=== PATIENT | male | born 1935 | race Hispanic/Latino ===

== ENCOUNTER 2017-02-25 10:27 | Emergency (ER) | payer MEDICARE, BC ==
[2017-02-25 10:38] VITALS: BMI 34.3
[2017-02-25 10:39] VITALS: RESP 16; TEMP 98.2
--- NOTE | 2017-02-25 11:32 | ED PDOC ---
Arrival/HPI <DUDLEY HAQUE - Last Filed: 02/25/17 16:08> <Morris Barnett - Last Filed: 02/25/17 17:57> - General Chief Complaint: Back Pain Time Seen by Provider: 02/25/17 10:43 - History of Present Illness Narrative History of Present Illness (Text): 02/25/17 11:15 Mr. Russell is a 81 year old male with pmh signifianct for COPD who presents to the emergency department with lower back pain with radiation of pain into his left leg. Pt reports the onset of his pain was a few weeks ago after he sustained a fall in the shower. He reports falling on to his left side. He reports the pain has become progressively worse since onset and is rated as constant 7/10 pain. His pain is worse with walking and increased with long periods of sitting. He denies urinary incontinence, urinary retention, saddle anesthesia, weakness, numbness or fever. Pt reports taking 2 Aleve today for pain without resolution. (DUDLEY HAQUE) Past Medical History - Provider Review Nursing Documentation Reviewed: Yes - Infectious Disease Hx of Infectious Diseases: None - Pulmonary Hx Chronic Obstructive Pulmonary Disease (COPD): Yes - Psychiatric Hx Substance Use: No - Surgical History Other/Comment: cyst on head years ago - Anesthesia Hx Anesthesia Reactions: No Hx Malignant Hyperthermia: No <DUDLEY HAQUE - Last Filed: 02/25/17 16:08> Family/Social History - Physician Review Nursing Documentation Reviewed: Yes Family/Social History: No Known Family HX Smoking Status: Former Smoker Hx Alcohol Use: Yes Frequency of alcohol use: Socially Hx Substance Use: No <DUDLEY HAQUE - Last Filed: 02/25/17 16:08> Allergies/Home Meds <DUDLEY HAQUE - Last Filed: 02/25/17 16:08> <Morris Barnett - Last Filed: 02/25/17 17:57> Allergies/Adverse Reactions: Allergies No Known Allergies Allergy (Verified 02/25/17 11:33) Home Medications: Home Meds Medication Instructions Recorded Confirmed Fluticasone/Vilanterol [Breo 1 puff INH DAILY 02/25/17 02/25/17 Ellipta 200-25 Mcg INH] Umeclidinium [place] [Incruse 1 puff INH DAILY 02/25/17 02/25/17 Ellipta] Review of Systems - Review of Systems Constitutional: absent: Fatigue, Weight Change Respiratory: absent: SOB, Cough Cardiovascular: absent: Chest Pain, Palpitations Gastrointestinal: absent: Abdominal Pain, Stool Changes, Diarrhea, Nausea, Vomiting Genitourinary Male: Urinary Output Changes. absent: Dysuria Musculoskeletal: Back Pain, Other (shooting left leg pain ). absent: Neck Pain , Joint Swelling Skin: absent: Rash, Pruritis Neurological: absent: Headache, Dizziness, Focal Weakness, Gait Changes Endocrine: absent: Diaphoresis Psychiatric: absent: Anxiety, Depression <DUDLEY HAQUE - Last Filed: 02/25/17 16:08> Physical Exam Vital Signs Reviewed: Yes Temperature: Afebrile Blood Pressure: Hypertensive Pulse: Regular Respiratory Rate: Normal Appearance: Positive for: Well-Appearing Pain Distress: Moderate Mental Status: Positive for: Alert and Oriented X 3 - Systems Exam Head: Present: Atraumatic, Normocephalic Pupils: Present: PERRL Extroacular Muscles: Present: EOMI Conjunctiva: Present: Normal. No: Injected Mouth: Present: Moist Mucous Membranes Neck: Present: Normal Range of Motion. No: MIDLINE TENDERNESS Respiratory/Chest: Present: Clear to Auscultation, Good Air Exchange. No: Respiratory Distress Cardiovascular: Present: Regular Rate and Rhythm, Normal S1, S2 Abdomen: Present: Normal Bowel Sounds. No: Tenderness, Distention Upper Extremity: Present: Normal Inspection, Normal ROM, NORMAL PULSES. No: Edema Lower Extremity: Present: NORMAL PULSES, Neurovascularly Intact. No: CALF TENDERNESS, Tenderness, Swelling Neurological: Present: GCS=15, CN II-XII Intact, Speech Normal Skin: Present: Warm, Dry Psychiatric: Present: Alert, Oriented x 3 <DUDLEY HAQUE - Last Filed: 02/25/17 16:08> Medical Decision Making <DUDLEY HAQUE - Last Filed: 02/25/17 16:08> <Morris Barnett - Last Filed: 02/25/17 17:57> ED Course and Treatment: 02/25/17 11:44 Impression: Mr. Russell is an 81 year old man who complains of lower left back pain with radiation of pain into his left leg for the past few weeks. Differential Diagnosis included but are not limited to: - Bone contusion - Lumbarspinal Muscular strain Plan: - Xray lumbar spine and left hip and pelvis -- Reassess and disposition Progress Notes: 02/25/17 13:18 Lumbar spine xray: Positive for disc bulging for L2-L3, L3-L4, No signs of fracture Pelvic/Hip xray: No evidence of fracture (DUDLEY HAQUE) Seen and examined with resident. 81 y/o M p/w L lumbar pain s/p fall 3 weeks ago. On exam, normal motor, sensation. Denies urinary or bowel symptoms. XRs show no fracture, +disc bulging. Dr. Rowe will see patient in office on Tuesday, recommends Decadron and Valium at this time. (Morris Barnett) - RAD Interpretation Radiology Orders: 02/25/17 11:35 HIP MIN 2V W/ PELVIS LT [RAD] Stat LS SPINE AP/LAT [RAD] Stat - Medication Orders Current Medication Orders: Discontinued Medications Acetaminophen (Tylenol 325mg Tab) 975 mg PO STAT STA Stop: 02/25/17 11:36 Last Admin: 02/25/17 12:17 Dose: 975 mg Re-Assess: MAR Pain/Vitals Document 02/25/17 13:17 SRE (Rec: 02/25/17 14:09 SRE [id number]) Pain Reassessment Is This A Pain ReAssessment? Yes Sleep Is patient sleeping during reassessment? No Presence of Pain Presence of Pain Yes Pain Scale Used Pain Scale Used Numeric Location Pain Location Body Site Back Description Intermittent Dexamethasone (Decadron) 12 mg PO STAT STA Stop: 02/25/17 15:05 Last Admin: 02/25/17 15:10 Dose: 12 mg Oxycodone/Acetaminophen (Percocet 5/325 Mg Tab) 1 tab PO STAT STA Stop: 02/25/17 14:03 Last Admin: 02/25/17 14:14 Dose: 1 tab - PA / TECHNOLOGY OFFICER / Resident Statement / has reviewed & agrees with the documentation as recorded. / has examined the patient and agrees with the treatment plan. <DUDLEY HAQUE - Last Filed: 02/25/17 16:08> Disposition/Present on Arrival - Present on Arrival Any Indicators Present on Arrival: No History of DVT/PE: No History of Uncontrolled Diabetes: No Urinary Catheter: No History of Decub. Ulcer: No History Surgical Site Infection Following: None <DUDLEY HAQUE - Last Filed: 02/25/17 16:08> - Disposition Have Diagnosis and Disposition been Completed?: Yes Disposition Time: 12:43 Patient Plan: Discharge <AnibalMorris Noah - Last Filed: 02/25/17 17:57> - Disposition Diagnosis: Herniated disc Disposition: HOME/ ROUTINE Condition: STABLE Discharge Instructions (ExitCare): Lumbar Disc Herniation (ED) Additional Instructions: Dr. Rowe's office, Tuesday at 12:30PM Prescriptions: Dexamethasone [Decadron] 3 tab PO DAILY #12 tab diaZEpam [Valium] 1 tab PO Q8H PRN #15 tab PRN Reason: Pain, Moderate (4-7) Referrals: Nash Rowe MD [Staff Provider] - Follow up with primary
--- NOTE | 2017-02-25 12:44 | RAD ---
PROCEDURE: Radiographs of the Lumbar Spine. HISTORY: back pain COMPARISON: No prior. FINDINGS: BONES: Normal alignment. No listhesis. No fracture. DISC SPACES: Disc bulging at L2-3 and L3-4. OTHER FINDINGS: None. IMPRESSION: Disc bulge at L2-3 and L3-4. No compression fractures
--- NOTE | 2017-02-25 12:46 | RAD ---
PROCEDURE: Left Hip and pelvis X-ray Radiographs. HISTORY: left lower back pain COMPARISON: None. FINDINGS: BONES: Normal. No fracture. JOINTS: Normal. SOFT TISSUES: Normal. OTHER FINDINGS: None. IMPRESSION: Negative study
[2017-02-25] MEDS ORDERED: Oxycodone/Acetaminophen 5/325 mg Tab PO STA (14:02)
[2017-02-25 15:32] VITALS: BP 146/84; PULSE 76; O2SAT 96
== END 2017-02-25 15:20 | disposition home or self-care (01) ==
LOC: ED 10:27
DX: M51.26 Other intervertebral disc displacement, lumbar region (principal)
CPT/HCPCS: 72100; 73502; 99283; J8540